=== PATIENT | male | born 1960 | race Hispanic/Latino ===

== ENCOUNTER 2021-03-31 14:41 | Inpatient (IN) ==
--- NOTE | 2021-03-31 16:34 | General Surgery Consult Note ---
HPI Data of Consult Patient: new to practice Consult date: 03/31/21 Consult Narrative Patient Information: Note initiated : 03/31/21 at 4:32 pm Service Date, if different from initiated Date: [] Patient: Gabe Medina 60 y/o M admitted on 03/31/21 for Ruptured diverticulitis. This is a pleasant 60-year-old gentleman who was seen in [facility] earlier this morning, he has been feeling unwell for the past 8 days, developed left-sided abdominal pain over the last several days. Denies any fevers chills nausea or vomiting. Denies any prior history of similar sort of pain. 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 Work-up in [facility] showed a sigmoid diverticulitis with a small area of perforation without free perforation, abscess or other pathology. They had no surgeon therefore the patient was transferred for further medical care.. Chief Complaint: [] Reason for consult: Perforated diverticulitis cc:: CC: Rinku Marie MD Review of Systems Review of systems: All systems are reviewed, negative other than above PFSH PFSH All Active Problems (Updated 03/31/21 @ 16:36 by Willard Rubio MD) Perforation of sigmoid colon due to diverticulitis (Acute) Physical Examination General physical appearance General physical exam: well developed, well nourished and no distress Eyes Eye exam: PERRL and normal ocular movement ENT ENT exam: normal pinna, normal nares, normal mucosa, no hearing loss and no congestion Head Head exam IM: Present atraumatic and normocephalic Neck Neck exam: no masses, no bruits, trachea midline, no lymphadenopathy and no venous distension Cardiovascular Cardiovascular exam IM: Present normal rate and rhythm Respiratory Respiratory exam: normal expansion, normal respiratory effort, clear to percussion and clear to auscultation Abdomen Abdomen: Present soft, tender (LLQ) and bowel sounds; Absent masses, guarding, rigid and rebound Hernia: Present none Genitourinary Genitourinary (Male): Present normal penis with no external lesions Rectum Rectum: Present normal sphincter tone, no hemorrhoids, no tenderness, no masses and no bleeding Integumentary Integumentary: Present no rash, no growths and no abnormal pigmentation Neurologic Neurologic: Present normal coordination and normal sensation Musculoskeletal Musculoskeletal: Present normal gait and normal posture Psychiatric Psychiatric: Present oriented to time, oriented to person, oriented to place, speech is normal and memory intact Results Labs Labs: White blood cell count of 14.[address] scan - pelvis: other (CT scan reviewed by myself and also with our radiologist.) A/P Assessment and plan (1) Perforation of sigmoid colon due to diverticulitis: Status: Acute Narrative A/P Narrative: This is a pleasant 60-year-old gentleman transferred from the [facility] with perforated sigmoid diverticulitis. He has no peritoneal signs, he has no free perforation. He has mild nausea and mild left lower quadrant abdominal pain. Recommendations: Clear liquid diet, continue with IV antibiotics, trend white blood cell count. Thank you very much for this consultation, I will continue to follow with you. Time Spent With Patient Time: Total time spent is greater than 50% in coordination of care (as documented) at patient's floor/unit and/or counseling patient:
[2021-03-31] MEDS ORDERED: HYDROmorphone 0.5 MG/0.5 ML SYRINGE IV PRN (16:58)
[2021-03-31] MEDS ORDERED: ONDANSETRON 4 MG/2 ML VIAL IV PRN (16:58)
[2021-03-31] MEDS ORDERED: DEXTROSE 50% 50 ML VIAL IV PRN (16:58)
[2021-03-31] MEDS ORDERED: DEXTROSE 31 GM ORAL.SUSP PO PRN (16:58)
[2021-03-31] MEDS ORDERED: ACETAMINOPHEN 325 MG TABLET PO PRN (16:58)
[2021-03-31 17:44] LABS: Hematocrit 36.8 % (40.1-51.0); Hemoglobin 11.7 g/dL (13.7-17.5); Mean Cell Volume 87.8 fL (80.0-100.0); Mean Corpuscular HGB Conc 31.8 g/dL (31.0-36.0); Mean Platelet Volume 10.3 fL (7.4-10.4); Platelet Count 354 K/mcL (140-440); RBC 4.19 M/mcL (4.63-6.08); Red Cell Distribution Width 13.9 % (11.5-14.5)
--- NOTE | 2021-03-31 17:51 | Internal Med History&Physical ---
HPI History of Present Illness Patient information: Note initiated : 03/31/21 at 5:43 pm Service Date, if different from initiated Date: [] Patient: Gabe Medina 60 y/o M admitted on 03/31/21 for Ruptured Diverticuli. Chief Complaint: [] History of present illness: Mr. Hermilo Leonardo is a 60 year old male Korean speaker with a history of hypertension, type 2 diabetes mellitus, coronary artery disease presented to [facility] in [place], [place], for abdominal pain that started about a day before presentation and located mostly in the left lower quadrant. Workup included a CT abdomen that showed diverticulitis and gas but no discrete abscess. Due to bed capacity issues the patient was not able to be admitted and transferred to [facility] after the case was reviewed by general surgery Dr. Rubio. 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 Eyes: normal appearance, no scleral icterus. Neck: full ROM Respiratory: no respiratory distress. Cardiovascular: normal rate and rhythm, S1, S2. GI/Abdominal: soft, tenderness in left lower quadrant, rebound tenderness present Extremities: full range of motion, nontender. Neurological: CN II-XII intact, intact motor, intact sensation. Psychiatric: normal mood. Skin: warm, normal color PFSH PFSH All Active Problems (Updated 03/31/21 @ 16:36 by Willard Rubio MD) Perforation of sigmoid colon due to diverticulitis (Acute) MEDS/ALLERGIES Home Medications and Allergies Home Medications Medication Instructions Recorded Confirmed Type Plavix 75 mg PO DAILY 03/31/21 03/31/21 History aspirin 81 mg PO DAILY 03/31/21 03/31/21 History atorvastatin 40 mg PO DAILY 03/31/21 03/31/21 History losartan 50 mg PO DAILY 03/31/21 03/31/21 History metformin 500 mg PO BID 03/31/21 03/31/21 History metoprolol tartrate 25 mg PO DAILY 03/31/21 03/31/21 History Allergies Allergy/AdvReac Type Severity Reaction Status Date / Time No Known Drug Allergies Allergy Unverified 03/31/21 17:19 DATA Data Completed and Pending Labs: Labs from last 24 hours 03/31/21 03/31/21 17:08 17:08 WBC Pending RBC Pending Hgb Pending Hct Pending MCV Pending MCH Pending MCHC Pending RDW Pending Plt Count Pending MPV Pending Platelet Estimate Pending RBC Morphology Pending Sodium Pending Potassium Pending Chloride Pending Carbon Dioxide Pending Anion Gap Pending BUN Pending Creatinine Pending GFR Calculation Pending Glucose Pending Uric Acid Pending Calcium Pending Phosphorus Pending Magnesium Pending Total Bilirubin Pending Direct Bilirubin Pending GGT Pending AST Pending ALT Pending Alkaline Phosphatase Pending Lactate Dehydrogenase Pending Total Protein Pending Albumin Pending Globulin Pending Albumin/Globulin Ratio Pending Triglycerides Pending A/P Narrative A/P Narrative: Assessment: 60 year old male with a history of hypertension, type 2 diabetes mellitus, coronary artery disease transferred from [facility] in [place], [place], for diverticulitis likely complicated by microperforation. The reason for transfer was bed capacity at the sending hospital. #Diverticulitis with microperforation #Hypertension #Type 2 Diabetes Mellitus #Coronary artery disease Plan -Admit to med/surg, admission CBC and inpatient panel -Ciprofloxacin IV and Flagyl IV -Analgesics prn -IV fluid -NPO for now -Serial abdominal exams -Continue home ASA, Plavix, Atorvastatin. -Lantus and SSI, hold Metformin -General surgery consult -DVT ppx: Lovenox -Code status: DNR Time Spent With Patient Time: Total time spent is greater than 50% in coordination of care (as documented) at patient's floor/unit and/or counseling patient: QUALITY VTE Deep Vein Thrombosis/Pulmonary Embolism Present on Admission: No
[2021-03-31 18:01] LABS: ALT/SGPT 16 U/L (<40); AST/SGOT 9 U/L (<40); Alkaline Phosphatase 100 U/L (39-117); Bilirubin,Direct < 0.2 mg/dL (0-0.3); Bilirubin,Total 0.3 mg/dL (0.1-1.0); Blood Urea Nitrogen 13 mg/dL (8-23); Calcium 8.5 mg/dL (8.6-10.4); Carbon Dioxide 24 mmol/L (22-30); Chloride 107 mmol/L (96-108); Globulin 3.1 gm/dL (2.2-3.7); Glomerular Filtration Rate 72; Glucose 100 mg/dL (70-105); Lactate Dehydrogenase 88 U/L (135-225); Phosphorous 2.6 mg/dL (2.5-4.5); Triglycerides 141 mg/dL (<150); Uric Acid 5.5 mg/dL (2.5-8.0)
[2021-03-31 18:52] LABS: Eosinophils % (Manual) 4 % (0-7); Hypochromasia 1+ (None Seen); Lymphocytes % 21 % (15-49); Monocytes % (Manual) 3 % (1-12); Platelet Estimate NORMAL (Normal); RBC Morphology ABNORMAL (Normal); Segmented Neutrophils % 72 % (38-78)
[2021-03-31] MEDS ORDERED: HYDROcodone/APAP 5/325MG TABLET PO ONE (18:57)
[2021-03-31] MEDS: HYDROcodone/APAP 5/325MG TABLET PO PRN (19:00)
[2021-03-31] MEDS: 0.9 % SODIUM CHLORIDE 1,000 ML IV SCH (19:38)
[2021-03-31] MEDS: INSULIN LISPRO 1 UNIT/0.01 ML UNIT SQ SCH ×2 (19:42→20:48)
[2021-03-31] MEDS: metroNIDAZOLE 500 MG/100 ML BAG IV SCH (20:27)
[2021-03-31] MEDS: DOCUSATE SODIUM 100 MG CAPSULE PO SCH (20:47)
[2021-03-31] MEDS: 0.9 % SODIUM CHLORIDE 10 ML SYRINGE IV SCH (20:48)
[2021-03-31] MEDS: SENNOSIDES 1 TABLET PO SCH (20:55)
[2021-03-31] MEDS: CIPROFLOXACIN 400 MG/200 ML BAG IV SCH (21:54)
[2021-04-01] MEDS: HYDROcodone/APAP 5/325MG TABLET PO PRN ×3 (02:49→21:14)
[2021-04-01] MEDS: 0.9 % SODIUM CHLORIDE 1,000 ML IV SCH ×3 (03:01→16:46)
[2021-04-01] MEDS: metroNIDAZOLE 500 MG/100 ML BAG IV SCH ×3 (03:59→20:47)
[2021-04-01] MEDS: 0.9 % SODIUM CHLORIDE 10 ML SYRINGE IV SCH ×3 (04:00→20:55)
[2021-04-01 06:37] LABS: Basophils # (Auto) 0.04 K/mcL (0.00-0.30); Basophils % (Auto) 0.6 % (0.0-2.0); Eosinophils # (Auto) 0.33 K/mcL (0.00-0.70); Eosinophils % (Auto) 4.6 % (0.0-7.0); Hematocrit 36.1 % (40.1-51.0); Hemoglobin 11.2 g/dL (13.7-17.5); Lymphocytes # (Auto) 1.81 K/mcL (1.50-4.80); Mean Cell Volume 87.8 fL (80.0-100.0); Mean Platelet Volume 10.6 fL (7.4-10.4); Monocytes # (Auto) 0.39 K/mcL (0.10-0.90); Monocytes % (Auto) 5.4 % (1.0-12.0); Neutrophils % (Auto) 64.4 % (38.0-78.0); Platelet Count 356 K/mcL (140-440); RBC 4.11 M/mcL (4.63-6.08); Red Cell Distribution Width 13.6 % (11.5-14.5); WBC 7.2 K/mcL (4.5-11.0)
[2021-04-01 07:04] LABS: ALT/SGPT 14 U/L (<40); AST/SGOT 12 U/L (<40); Albumin 3.1 gm/dL (3.2-5.2); Alkaline Phosphatase 98 U/L (39-117); Bilirubin,Direct < 0.2 mg/dL (0-0.3); Bilirubin,Total 0.2 mg/dL (0.1-1.0); Blood Urea Nitrogen 12 mg/dL (8-23); Calcium 8.2 mg/dL (8.6-10.4); Carbon Dioxide 27 mmol/L (22-30); Chloride 107 mmol/L (96-108); Globulin 3.1 gm/dL (2.2-3.7); Glomerular Filtration Rate 59; Glucose 118 mg/dL (70-105); Lactate Dehydrogenase 100 U/L (135-225); Phosphorous 2.5 mg/dL (2.5-4.5); Triglycerides 151 mg/dL (<150); Uric Acid 5.5 mg/dL (2.5-8.0)
[2021-04-01] MEDS: INSULIN LISPRO 1 UNIT/0.01 ML UNIT SQ SCH ×4 (07:40→20:54)
[2021-04-01] MEDS ORDERED: 0.9 % SODIUM CHLORIDE 1,000 ML IV ONE (07:42)
--- NOTE | 2021-04-01 07:52 | General Surgery Progress Note ---
SUBJECTIVE Subjective Patient information: Note initiated : 04/01/21 at 7:51 am Service Date, if different from initiated Date: [] Patient: Gabe Medina 60 y/o M admitted on 03/31/21 for Ruptured Diverticuli. Chief Complaint: [] Interval history: Patient feels better this morning, decreased abdominal pain. No nausea no vomiting. Constitutional Vitals: Vital Signs Temp Pulse Resp BP Pulse Ox 98.3 F 71 20 132/82 92 04/01/21 07:21 04/01/21 07:21 04/01/21 07:21 04/01/21 07:21 04/01/21 07:21 Period Temp Pulse Resp BP Sys/Krishnamurthy Pulse Ox Last 24 Hr 97.8 F-98.6 F 71-85 16-20 129-142/78-86 90-92 Intake and Output 03/31/21 04/01/21 04/01/21 21:59 05:59 13:59 Intake Total 1400 Output Total 620 Balance 780 Weight 199 lb 12.8 oz Intake & Output: Intake & Output 03/31/21 04/01/21 04/01/21 21:59 05:59 13:59 Intake Total 1400 Output Total 620 Balance 780 Weight 199 lb 12.8 oz Intake: IV 1400 Sodium Chloride 0.9% 1,000 ml @ 1000 125 mls/hr IV .Q8H [facility] Rx#: [id number] Output: Void Amount 620 Other: Urine Appearance Clear Urine Color Bright Yellow # Voids 1 General appearance: cooperative and no acute distress GI/Abdominal GI/Abdominal exam: Present normal bowel sounds, soft and tenderness (Minimal tender to palpation in the right lower quadrant); Absent rebound and rigid A/P Narrative A/P Narrative: Resolving diverticulitis. Clear to advance to clear liquid diet. Time Spent With Patient Time: Total time spent is greater than 50% in coordination of care (as documented) at patient's floor/unit and/or counseling patient:
[2021-04-01] MEDS: CIPROFLOXACIN 400 MG/200 ML BAG IV SCH ×2 (08:34→21:51)
[2021-04-01] MEDS: ATORVASTATIN 40 MG TABLET PO SCH (08:35)
[2021-04-01] MEDS: METOPROLOL TARTRATE 25 MG TABLET PO SCH (08:35)
[2021-04-01] MEDS: DOCUSATE SODIUM 100 MG CAPSULE PO SCH ×2 (08:35→20:53)
[2021-04-01] MEDS: ASPIRIN 81 MG TAB.CHEW PO SCH (08:35)
[2021-04-01] MEDS: CLOPIDOGREL 75 MG TABLET PO SCH (08:35)
[2021-04-01] MEDS: ENOXAPARIN 40 MG/0.4 ML SYRINGE SQ SCH (08:35)
--- NOTE | 2021-04-01 11:24 | Internal Med Progress Note ---
SUBJECTIVE Subjective Patient information: Note initiated : 04/01/21 at 11:19 am Service Date, if different from initiated Date: [] Patient: Gabe Medina a 60 y/o M admitted on 03/31/21 for Ruptured Diverticuli. Chief Complaint: [] Interval history: History of present illness: Mr. Hermilo Leonardo is a 60 year old male Faroese speaker with a history of hypertension, type 2 diabetes mellitus, coronary artery disease presented to [facility] in [place], [place], for abdominal pain that started about a day before presentation and located mostly in the left lower quadrant. Workup included a CT abdomen that showed diverticulitis and gas but no discrete abscess. Due to bed capacity issues the patient was not able to be admitted and transferred to [facility] after the case was reviewed by general surgery Dr. Rubio. 04/01: Met with patient, daughter, and at bedside. His daughter assisted with translation. The patient says he is feeling much better today, abdomen less tender. Creatinine increased to 1.3, bolus of normal saline ordered. General surgery happy with progress and recommended advancing to clear liquid diet. Review of systems: afebrile, improving abdominal pain, no chest pain Physical Exam Head: Atraumatic, normal inspection. Eyes: normal appearance, no scleral icterus. Neck: full ROM Respiratory: no respiratory distress. Cardiovascular: normal rate and rhythm, S1, S2. GI/Abdominal: soft, improved tenderness in left lower quadrant Extremities: full range of motion, nontender. Neurological: CN II-XII intact, intact motor, intact sensation. Psychiatric: normal mood. Skin: warm, normal color Constitutional Vitals: Vital Signs Temp Pulse Resp BP Pulse Ox 98.3 F 71 20 132/82 92 04/01/21 07:21 04/01/21 07:21 04/01/21 07:21 04/01/21 07:21 04/01/21 07:21 Period Temp Pulse Resp BP Sys/Krishnamurthy Pulse Ox Last 24 Hr 97.8 F-98.6 F 71-85 16-20 129-142/78-86 90-92 Intake and Output 03/31/21 04/01/21 04/01/21 21:59 05:59 13:59 Intake Total 1400 1200 Output Total 620 200 Balance 780 1000 Weight 90.628 kg Intake & Output: Intake & Output 03/31/21 04/01/21 04/01/21 21:59 05:59 13:59 Intake Total 1400 1200 Output Total 620 200 Balance 780 1000 Weight 90.628 kg Intake: IV 1400 1200 Sodium Chloride 0.9% 1,000 ml @ 1000 1000 Wide Open IV BOLUS ONE Rx#: [id number] Output: Void Amount 620 200 Other: Urine Appearance Clear Urine Color Bright Yellow Dark Yellow Urine Odor Normal # Voids 1 OBJ DATA Labs CBC & Chem 7: 04/01/21 05:08 04/01/21 05:08 Labs: Abnormal Lab Results 04/01/21 04/01/21 03/31/21 05:08 05:08 17:08 RBC 4.11 L Hgb 11.2 L Hct 36.1 L MPV 10.6 H RBC Morphology Hypochromasia Anion Gap 7.0 L Creatinine 1.3 H Glucose 118 H Calcium 8.2 L 8.5 L Lactate Dehydrogenase 100 L 88 L Albumin 3.1 L 3.0 L Triglycerides 151 H 03/31/21 17:08 RBC 4.19 L Hgb 11.7 L Hct 36.8 L MPV RBC Morphology Abnormal A Hypochromasia 1+ A Anion Gap Creatinine Glucose Calcium Lactate Dehydrogenase Albumin Triglycerides Meds: Medications Acetaminophen (Acetaminophen 325 Mg Tablet) 650 mg PO Q6HP PRN; Protocol PRN Reason: Per Pain Protocol/Fever > 101 Hydrocodone Bitart/Acetaminophen (Hydrocodone/Apap 5/325mg Tablet) 1 tab PO Q4HP PRN; Protocol PRN Reason: Per Pain Protocol Last Admin: 04/01/21 02:49 Dose: 1 tab Documented by: Aspirin (Aspirin 81 Mg Tab.Chew) 81 mg PO DAILY [facility] Last Admin: 04/01/21 08:35 Dose: 81 mg Documented by: Atorvastatin Calcium (Atorvastatin 40 Mg Tablet) 40 mg PO DAILY [facility] Last Admin: 04/01/21 08:35 Dose: 40 mg Documented by: Clopidogrel Bisulfate (Clopidogrel 75 Mg Tablet) 75 mg PO DAILY [facility] Last Admin: 04/01/21 08:35 Dose: 75 mg Documented by: Dextrose (Dextrose 50% 50 Ml Vial) 0 ml IV UD PRN PRN Reason: Hypoglycemia Diagnostic Test (Pha) (Accu-Chek 1 Each Strip) 1 each FS ACHS [facility] Last Admin: 04/01/21 07:40 Dose: 1 each Documented by: Docusate Sodium (Docusate Sodium 100 Mg Capsule) 100 mg PO BID [facility] Last Admin: 04/01/21 08:35 Dose: 100 mg Documented by: Enoxaparin Sodium (Enoxaparin 40 Mg/0.4 Ml Syringe) 40 mg SQ DAILY [facility] Last Admin: 04/01/21 08:35 Dose: 40 mg Documented by: Glucose (Dextrose 31 Gm Oral.Susp) 15 gm PO PRN PRN PRN Reason: Hypoglycemia Hydromorphone HCl (Hydromorphone 0.5 Mg/0.5 Ml Syringe) 0.5 mg IV Q2HP PRN; Protocol PRN Reason: Per Pain Protocol Sodium Chloride (Sodium Chloride 0.9%) 1,000 mls @ 125 mls/hr IV .Q8H [facility] Last Admin: 04/01/21 07:10 Dose: 125 mls/hr Documented by: Ciprofloxacin (Cipro) 400 mg in 200 mls @ 200 mls/hr IV Q12H [facility]; Protocol Last Infusion: 04/01/21 09:48 Dose: Infused Documented by: Metronidazole (Flagyl) 500 mg in 100 mls @ 100 mls/hr IV Q8H [facility]; Protocol Last Infusion: 04/01/21 05:02 Dose: Infused Documented by: Insulin Human Lispro (Insulin Lispro 1 Unit/0.01 Ml Unit) 0 unit SQ ACHS [facility]; Protocol Last Admin: 04/01/21 07:40 Dose: Not Given Documented by: Metoprolol Tartrate (Metoprolol Tartrate 25 Mg Tablet) 25 mg PO DAILY [facility] Last Admin: 04/01/21 08:35 Dose: 25 mg Documented by: Ondansetron HCl (Ondansetron 4 Mg/2 Ml Vial) 4 mg IV Q6HP PRN PRN Reason: Nausea And Vomiting Senna (Sennosides 1 Tablet) 2 tab PO HS [facility] Last Admin: 03/31/21 20:55 Dose: Not Given Documented by: Sodium Chloride (0.9 % Sodium Chloride 10 Ml Syringe) 10 ml IV Q8 [facility] Last Admin: 04/01/21 04:00 Dose: Not Given Documented by: A/P Narrative A/P Narrative: Assessment: 60 year old male with a history of hypertension, type 2 diabetes mellitus, coronary artery disease transferred from [facility] in [place], [place], for diverticulitis likely complicated by microperforation. The reason for transfer was bed capacity at the sending hospital. #Diverticulitis with microperforation #Elevated creatinine of 1.3 #Hypertension #Type 2 Diabetes Mellitus #Coronary artery disease Plan -Ciprofloxacin IV and Flagyl IV -Analgesics prn -IV fluid -Clear liquid diet -Serial abdominal exams -Follow renal function -Continue home ASA, Plavix, Atorvastatin. -Lantus and SSI, hold Metformin -General surgery following -DVT ppx: Lovenox -Code status: DNR per patient's request -Disposition: home when ok with surgery and able to tolerate diet, will need oral antibiotics at discharge Time Spent With Patient Time: Total time spent is greater than 50% in coordination of care (as documented) at patient's floor/unit and/or counseling patient: QUALITY VTE Deep Vein Thrombosis/Pulmonary Embolism Present on Admission: No
[2021-04-01] MEDS: SENNOSIDES 1 TABLET PO SCH (20:53)
[2021-04-02] MEDS: 0.9 % SODIUM CHLORIDE 1,000 ML IV SCH ×4 (01:25→12:22)
[2021-04-02] MEDS: metroNIDAZOLE 500 MG/100 ML BAG IV SCH (03:00)
[2021-04-02] MEDS: 0.9 % SODIUM CHLORIDE 10 ML SYRINGE IV SCH ×3 (05:43→21:05)
[2021-04-02 06:49] LABS: Basophils # (Auto) 0.04 K/mcL (0.00-0.30); Basophils % (Auto) 0.6 % (0.0-2.0); Eosinophils # (Auto) 0.36 K/mcL (0.00-0.70); Hematocrit 34.7 % (40.1-51.0); Hemoglobin 11.1 g/dL (13.7-17.5); Lymphocytes # (Auto) 1.63 K/mcL (1.50-4.80); Lymphocytes % (Auto) 22.5 % (15.5-49.0); Mean Platelet Volume 10.6 fL (7.4-10.4); Monocytes # (Auto) 0.45 K/mcL (0.10-0.90); Monocytes % (Auto) 6.2 % (1.0-12.0); Neutrophils % (Auto) 65.7 % (38.0-78.0); Platelet Count 351 K/mcL (140-440); RBC 4.08 M/mcL (4.63-6.08); Red Cell Distribution Width 13.2 % (11.5-14.5); WBC 7.2 K/mcL (4.5-11.0)
[2021-04-02] MEDS: INSULIN LISPRO 1 UNIT/0.01 ML UNIT SQ SCH ×4 (06:56→20:29)
[2021-04-02] MEDS: HYDROcodone/APAP 5/325MG TABLET PO PRN ×2 (07:05→20:55)
[2021-04-02 08:29] LABS: ALT/SGPT 13 U/L (<40); AST/SGOT 12 U/L (<40); Albumin 2.9 gm/dL (3.2-5.2); Alkaline Phosphatase 88 U/L (39-117); Bilirubin,Direct < 0.2 mg/dL (0-0.3); Bilirubin,Total 0.2 mg/dL (0.1-1.0); Blood Urea Nitrogen 8 mg/dL (8-23); Calcium 7.9 mg/dL (8.6-10.4); Carbon Dioxide 24 mmol/L (22-30); Chloride 105 mmol/L (96-108); Globulin 2.9 gm/dL (2.2-3.7); Glomerular Filtration Rate 72; Glucose 106 mg/dL (70-105); Lactate Dehydrogenase 98 U/L (135-225); Phosphorous 2.3 mg/dL (2.5-4.5); Triglycerides 107 mg/dL (<150); Uric Acid 5.1 mg/dL (2.5-8.0)
--- NOTE | 2021-04-02 09:38 | General Surgery Progress Note ---
SUBJECTIVE Subjective Patient information: Note initiated : 04/02/21 at 9:37 am Service Date, if different from initiated Date: [] Patient: Gabe Medina 60 y/o M admitted on 03/31/21 for Ruptured Diverticuli. Chief Complaint: [] Interval history: Slight improvement of abdominal pain, more tender with ambulation. Constitutional Vitals: Vital Signs Temp Pulse Resp BP Pulse Ox 97.7 F 74 20 151/93 93 04/02/21 08:00 04/02/21 08:00 04/02/21 08:00 04/02/21 08:00 04/02/21 08:00 Period Temp Pulse Resp BP Sys/Krishnamurthy Pulse Ox Last 24 Hr 97.7 F-98.5 F 67-76 18-20 145-156/87-93 92-94 Intake and Output 04/01/21 04/02/21 04/02/21 21:59 05:59 13:59 Intake Total 1700 2020 Output Total 400 1200 Balance 1300 820 Weight 205 lb 3 oz Intake & Output: Intake & Output 04/01/21 04/02/21 04/02/21 21:59 05:59 13:59 Intake Total 1700 2020 Output Total 400 1200 Balance 1300 820 Weight 205 lb 3 oz Intake: IV 1100 1300 Sodium Chloride 0.9% 1,000 ml @ 1000 1000 125 mls/hr IV .Q8H [facility] Rx#: [id number] Oral 600 720 Output: Void Amount 400 1200 Other: Percent of Meal Consumed 100% Urine Appearance Clear Clear Urine Color Bright Yellow Bright Yellow Urine Odor Normal Normal Stool Size Small Stool Color Brown Stool Consistency Watery General appearance: cooperative and no acute distress GI/Abdominal GI/Abdominal exam: Present soft; Absent distended, rebound, rigid and tenderness A/P Narrative A/P Narrative: Slowly improving diverticulitis. Advance diet to low residual as tolerated, p.o. antibiotics. I will continue to follow. Time Spent With Patient Time: Total time spent is greater than 50% in coordination of care (as documented) at patient's floor/unit and/or counseling patient:
[2021-04-02] MEDS: ENOXAPARIN 40 MG/0.4 ML SYRINGE SQ SCH (09:59)
[2021-04-02] MEDS: METOPROLOL TARTRATE 25 MG TABLET PO SCH (09:59)
[2021-04-02] MEDS: CIPROFLOXACIN 400 MG/200 ML BAG IV SCH (09:59)
[2021-04-02] MEDS: CLOPIDOGREL 75 MG TABLET PO SCH (10:00)
[2021-04-02] MEDS: ASPIRIN 81 MG TAB.CHEW PO SCH (10:00)
[2021-04-02] MEDS: ATORVASTATIN 40 MG TABLET PO SCH (10:00)
[2021-04-02] MEDS: DOCUSATE SODIUM 100 MG CAPSULE PO SCH ×2 (10:00→20:29)
[2021-04-02] MEDS: CIPROFLOXACIN 500 MG TABLET PO SCH ×2 (10:24→20:29)
--- NOTE | 2021-04-02 14:24 | Internal Med Progress Note ---
SUBJECTIVE Subjective Patient information: Note initiated : 04/02/21 at 2:20 pm Service Date, if different from initiated Date: [] Patient: Gabe Medina a 60 y/o M admitted on 03/31/21 for Ruptured Diverticuli. Chief Complaint: [] Interval history: History of present illness: Mr. Hermilo Leonardo is a 60 year old male Mohawk speaker with a history of hypertension, type 2 diabetes mellitus, coronary artery disease presented to [facility] in [place], [place], for abdominal pain that started about a day before presentation and located mostly in the left lower quadrant. Workup included a CT abdomen that showed diverticulitis and gas but no discrete abscess. Due to bed capacity issues the patient was not able to be admitted and transferred to [facility] after the case was reviewed by general surgery Dr. Rubio. 04/01: Met with patient, daughter, and at bedside. His daughter assisted with translation. The patient says he is feeling much better today, abdomen less tender. Creatinine increased to 1.3, bolus of normal saline ordered. General surgery happy with progress and recommended advancing to clear liquid diet. 04/02: Afebrile, abdominal pain improving, renal function normal today, advanced to soft diet, IV fluid discontinued, transitioned to oral ciprofloxacin and flagyl. General surgery ok with discharge if patient can tolerate soft diet and oral antibiotics. Resumed home Losartan. Plan to discharge tomorrow afternoon when daughter can pick the patient up. Review of systems: afebrile, improving abdominal pain, no chest pain Physical Exam Head: Atraumatic, normal inspection. Eyes: normal appearance, no scleral icterus. Neck: full ROM Respiratory: no respiratory distress. Cardiovascular: normal rate and rhythm, S1, S2. GI/Abdominal: soft, improved tenderness in left lower quadrant Extremities: full range of motion, nontender. Neurological: CN II-XII intact, intact motor, intact sensation. Psychiatric: normal mood. Skin: warm, normal color Constitutional Vitals: Vital Signs Temp Pulse Resp BP Pulse Ox 98.1 F 71 20 160/96 94 04/02/21 12:00 04/02/21 12:00 04/02/21 12:00 04/02/21 12:00 04/02/21 12:00 Period Temp Pulse Resp BP Sys/Krishnamurthy Pulse Ox Last 24 Hr 97.7 F-98.4 F 67-76 18-20 145-160/87-96 92-94 Intake and Output 04/02/21 04/02/21 04/02/21 05:59 13:59 21:59 Intake Total 2019 1480 Output Total 1200 Balance 820 1480 Intake & Output: Intake & Output 04/02/21 04/02/21 04/02/21 05:59 13:59 21:59 Intake Total 2019 1480 Output Total 1200 Balance 820 1480 Intake: IV 1300 1000 Sodium Chloride 0.9% 1,000 ml @ 1000 1000 125 mls/hr IV .Q8H [facility] Rx#: [id number] Oral 720 480 Output: Void Amount 1200 Other: Meal Breakfast Percent of Meal Consumed 100% Feeding Ability Independent Urine Appearance Clear Urine Color Bright Yellow Urine Odor Normal OBJ DATA Labs CBC & Chem 7: 04/02/21 05:06 04/02/21 05:05 Labs: Abnormal Lab Results 04/02/21 04/02/21 04/01/21 05:06 05:05 05:08 RBC 4.08 L Hgb 11.1 L Hct 34.7 L MPV 10.6 H RBC Morphology Hypochromasia Potassium 3.0 L Anion Gap 7.0 L Creatinine 1.3 H Glucose 106 H 118 H Calcium 7.9 L 8.2 L Phosphorus 2.3 L Magnesium 1.5 L Lactate Dehydrogenase 98 L 100 L Total Protein 5.8 L Albumin 2.9 L 3.1 L Triglycerides 151 H 04/01/21 03/31/21 03/31/21 05:08 17:08 17:08 RBC 4.11 L 4.19 L Hgb 11.2 L 11.7 L Hct 36.1 L 36.8 L MPV 10.6 H RBC Morphology Abnormal A Hypochromasia 1+ A Potassium Anion Gap Creatinine Glucose Calcium 8.5 L Phosphorus Magnesium Lactate Dehydrogenase 88 L Total Protein Albumin 3.0 L Triglycerides Meds: Medications Acetaminophen (Acetaminophen 325 Mg Tablet) 650 mg PO Q6HP PRN; Protocol PRN Reason: Per Pain Protocol/Fever > 101 Hydrocodone Bitart/Acetaminophen (Hydrocodone/Apap 5/325mg Tablet) 1 tab PO Q4HP PRN; Protocol PRN Reason: Per Pain Protocol Last Admin: 04/02/21 07:05 Dose: 1 tab Documented by: Aspirin (Aspirin 81 Mg Tab.Chew) 81 mg PO DAILY [facility] Last Admin: 04/02/21 10:00 Dose: 81 mg Documented by: Atorvastatin Calcium (Atorvastatin 40 Mg Tablet) 40 mg PO DAILY [facility] Last Admin: 04/02/21 10:00 Dose: 40 mg Documented by: Ciprofloxacin (Ciprofloxacin 500 Mg Tablet) 500 mg PO BID [facility] Last Admin: 04/02/21 10:24 Dose: 500 mg Documented by: Clopidogrel Bisulfate (Clopidogrel 75 Mg Tablet) 75 mg PO DAILY [facility] Last Admin: 04/02/21 10:00 Dose: 75 mg Documented by: Dextrose (Dextrose 50% 50 Ml Vial) 0 ml IV UD PRN PRN Reason: Hypoglycemia Diagnostic Test (Pha) (Accu-Chek 1 Each Strip) 1 each FS [facility] Last Admin: 04/02/21 12:22 Dose: 1 each Documented by: Docusate Sodium (Docusate Sodium 100 Mg Capsule) 100 mg PO BID [facility] Last Admin: 04/02/21 10:00 Dose: 100 mg Documented by: Enoxaparin Sodium (Enoxaparin 40 Mg/0.4 Ml Syringe) 40 mg SQ DAILY [facility] Last Admin: 04/02/21 09:59 Dose: 40 mg Documented by: Glucose (Dextrose 31 Gm Oral.Susp) 15 gm PO PRN PRN PRN Reason: Hypoglycemia Hydromorphone HCl (Hydromorphone 0.5 Mg/0.5 Ml Syringe) 0.5 mg IV Q2HP PRN; Protocol PRN Reason: Per Pain Protocol Sodium Chloride (Sodium Chloride 0.9%) 1,000 mls @ 125 mls/hr IV .Q8H [facility] Last Admin: 04/02/21 12:22 Dose: 125 mls/hr Documented by: Insulin Human Lispro (Insulin Lispro 1 Unit/0.01 Ml Unit) 0 unit SQ [facility]; Protocol Last Admin: 04/02/21 12:23 Dose: Not Given Documented by: Losartan Potassium (Losartan 50 Mg Tablet) 50 mg PO DAILY [facility] Metoprolol Tartrate (Metoprolol Tartrate 25 Mg Tablet) 25 mg PO DAILY [facility] Last Admin: 04/02/21 09:59 Dose: 25 mg Documented by: Metronidazole (Metronidazole 500 Mg Tablet) 500 mg PO Q8 [facility] Ondansetron HCl (Ondansetron 4 Mg/2 Ml Vial) 4 mg IV Q6HP PRN PRN Reason: Nausea And Vomiting Senna (Sennosides 1 Tablet) 2 tab PO HS [facility] Last Admin: 04/01/21 20:53 Dose: 2 tab Documented by: Sodium Chloride (0.9 % Sodium Chloride 10 Ml Syringe) 10 ml IV Q8 [facility] Last Admin: 04/02/21 12:18 Dose: Not Given Documented by: A/P Narrative A/P Narrative: Assessment: 60 year old male with a history of hypertension, type 2 diabetes mellitus, coronary artery disease transferred from [facility] in [place], [place], for diverticulitis likely complicated by micro perforation. The reason for transfer was bed capacity at the sending hospital. #Resolving diverticulitis with microperforation #Hypertension #Type 2 Diabetes Mellitus #Coronary artery disease #Obesity Plan -Ciprofloxacin PO and Flagyl PO -Analgesics prn -Discontinue IV fluid. -GI soft transitional diet. -Serial abdominal exams -Resume home Losartan -Continue home ASA, Plavix, Atorvastatin, Lopressor. -Lantus and SSI, hold Metformin -General surgery following -DVT ppx: Lovenox -Code status: Full -Disposition: probably home tomorrow on oral antibiotics Time Spent With Patient Time: Total time spent is greater than 50% in coordination of care (as documented) at patient's floor/unit and/or counseling patient: QUALITY VTE Deep Vein Thrombosis/Pulmonary Embolism Present on Admission: No
[2021-04-02] MEDS: metroNIDAZOLE 500 MG TABLET PO SCH ×2 (14:44→21:09)
[2021-04-02] MEDS ORDERED: POTASSIUM CHLORIDE 20 MEQ TABLET PO ONE ×2 (19:14→19:34)
[2021-04-02] MEDS: SENNOSIDES 1 TABLET PO SCH (20:29)
[2021-04-03] MEDS: metroNIDAZOLE 500 MG TABLET PO SCH (06:32)
[2021-04-03 07:13] LABS: Basophils # (Auto) 0.03 K/mcL (0.00-0.30); Basophils % (Auto) 0.5 % (0.0-2.0); Eosinophils # (Auto) 0.29 K/mcL (0.00-0.70); Eosinophils % (Auto) 4.5 % (0.0-7.0); Hematocrit 36.4 % (40.1-51.0); Hemoglobin 11.8 g/dL (13.7-17.5); Lymphocytes # (Auto) 1.42 K/mcL (1.50-4.80); Lymphocytes % (Auto) 22.2 % (15.5-49.0); Mean Cell Volume 84.1 fL (80.0-100.0); Mean Corpuscular HGB Conc 32.4 g/dL (31.0-36.0); Mean Platelet Volume 10.9 fL (7.4-10.4); Monocytes # (Auto) 0.39 K/mcL (0.10-0.90); Monocytes % (Auto) 6.1 % (1.0-12.0); Neutrophils % (Auto) 66.7 % (38.0-78.0); Platelet Count 371 K/mcL (140-440); RBC 4.33 M/mcL (4.63-6.08); Red Cell Distribution Width 13.1 % (11.5-14.5); WBC 6.4 K/mcL (4.5-11.0)
[2021-04-03] MEDS: INSULIN LISPRO 1 UNIT/0.01 ML UNIT SQ SCH ×2 (08:11→11:14)
[2021-04-03] MEDS: 0.9 % SODIUM CHLORIDE 10 ML SYRINGE IV SCH ×2 (08:11→12:26)
[2021-04-03] MEDS: CLOPIDOGREL 75 MG TABLET PO SCH (08:18)
[2021-04-03] MEDS: ATORVASTATIN 40 MG TABLET PO SCH (08:18)
[2021-04-03] MEDS: ENOXAPARIN 40 MG/0.4 ML SYRINGE SQ SCH (08:19)
[2021-04-03] MEDS: METOPROLOL TARTRATE 25 MG TABLET PO SCH (08:19)
[2021-04-03] MEDS: CIPROFLOXACIN 500 MG TABLET PO SCH (08:19)
[2021-04-03] MEDS: ASPIRIN 81 MG TAB.CHEW PO SCH (08:19)
[2021-04-03] MEDS: DOCUSATE SODIUM 100 MG CAPSULE PO SCH (08:19)
[2021-04-03] MEDS: HYDROcodone/APAP 5/325MG TABLET PO PRN (08:22)
[2021-04-03 08:23] LABS: ALT/SGPT 14 U/L (<40); AST/SGOT 16 U/L (<40); Alkaline Phosphatase 89 U/L (39-117); Bilirubin,Direct < 0.2 mg/dL (0-0.3); Bilirubin,Total 0.2 mg/dL (0.1-1.0); Blood Urea Nitrogen 10 mg/dL (8-23); Calcium 8.4 mg/dL (8.6-10.4); Carbon Dioxide 22 mmol/L (22-30); Chloride 104 mmol/L (96-108); Glomerular Filtration Rate 81; Glucose 105 mg/dL (70-105); Lactate Dehydrogenase 111 U/L (135-225); Phosphorous 2.2 mg/dL (2.5-4.5); Triglycerides 129 mg/dL (<150); Uric Acid 4.8 mg/dL (2.5-8.0)
[2021-04-03] MEDS ORDERED: LOSARTAN 50 MG TABLET PO SCH (09:00)
[2021-04-03] MEDS ORDERED: NEUTRA PHOS 1 PACKET PO SCH (09:30)
--- NOTE | 2021-04-03 11:32 | Discharge Summary ---
Discharge Provider Provider Patient information: Note initiated : 04/03/21 at 11:30 am Service Date, if different from initiated Date: [] Patient: Gabe Medina 60 y/o M admitted on 03/31/21 for Ruptured Diverticuli. Chief Complaint: [] Date of admission: 03/31/21 16:10 Discharge date: 04/03/21 Consults: 03/31/21 16:58 Consult to Physician [CONS] Routine Comment: Consulting Provider: Willard Rubio Reason For Exam: Physician to Consult Discharge Meds Discharge Medications Home Medications Plavix 75 mg PO DAILY 03/31/21 [History Confirmed 03/31/21 Last Taken Unknown] aspirin 81 mg PO DAILY 03/31/21 [History Confirmed 03/31/21 Last Taken 03/30/21 08:00] atorvastatin 40 mg PO DAILY 03/31/21 [History Confirmed 03/31/21 Last Taken Unknown] losartan 50 mg PO DAILY 03/31/21 [History Confirmed 03/31/21 Last Taken Unknown] metformin 500 mg PO BID 03/31/21 [History Confirmed 03/31/21 Last Taken Unknown] metoprolol tartrate 25 mg PO DAILY 03/31/21 [History Confirmed 03/31/21 Last Taken Unknown] acetaminophen [Tylenol Extra Strength] 500 mg PO Q6H PRN 10 Days #30 tab 04/03/21 [Rx Last Taken Unknown] ciprofloxacin HCl 500 mg PO BID 7 Days #14 tab 04/03/21 [Rx Last Taken Unknown] hydrocodone-acetaminophen 1 tab PO Q6H PRN #10 tab 04/03/21 [Rx Last Taken Unknown] metronidazole 500 mg PO Q8 7 Days #21 tab 04/03/21 [Rx Last Taken Unknown] COURSE Hospital Course Hospital course: Mr. Hermilo Leonardo is a 60 year old male with a history of hypertension, type 2 diabetes mellitus, coronary artery disease presented to [facility] in [place], [place], for abdominal pain that started about a day before presentation and located mostly in the left lower quadrant. Workup included a CT abdomen that showed diverticulitis and gas but no discrete abscess. Due to bed capacity issues the patient was not able to be admitted and transferred to [facility] after the case was reviewed by general surgery Dr. Rubio. 04/01: Met with patient, daughter, and at bedside. His daughter assisted with translation. The patient says he is feeling much better today, abdomen less tender. Creatinine increased to 1.3, bolus of normal saline ordered. General surgery happy with progress and recommended advancing to clear liquid diet. 04/02: Afebrile, abdominal pain improving, renal function normal today, advanced to soft diet, IV fluid discontinued, transitioned to oral ciprofloxacin and flagyl. General surgery ok with discharge if patient can tolerate soft diet and oral antibiotics. Resumed home Losartan. Plan to discharge tomorrow afternoon when daughter can pick the patient up. 04/03: Tolerating diet and oral antibiotics, discharged to home with 7 more days of oral ciprofloxacin and flagyl. Physical Exam Head: Atraumatic, normal inspection. Eyes: normal appearance, no scleral icterus. Neck: full ROM Respiratory: no respiratory distress. Cardiovascular: normal rate and rhythm, S1, S2. GI/Abdominal: soft, improved tenderness in left lower quadrant Extremities: full range of motion, nontender. Neurological: CN II-XII intact, intact motor, intact sensation. Psychiatric: normal mood. Skin: warm, normal color Discharge diagnosis: Acute Sigmoid diverticulitis Secondary discharge diagnosis: #Hypertension #Type 2 Diabetes Mellitus #Coronary artery disease #Obesity Time Spent with Patient Time attestation: Total time spent providing and/or coordinating discharge services: EXAM Constitutional Vitals: Temp Pulse Resp BP Pulse Ox 97.5 F 76 18 144/88 94 04/03/21 04:00 04/03/21 04:00 04/03/21 04:00 04/03/21 04:00 04/03/21 04:00 Discharge Data Data Completed and Pending Labs on day of discharge: Labs from last 24 hours 04/03/21 04/03/21 05:34 05:34 WBC 6.4 RBC 4.33 L Hgb 11.8 L Hct 36.4 L MCV 84.1 MCH 27.3 MCHC 32.4 RDW 13.1 Plt Count 371 MPV 10.9 H Neut % (Auto) 66.7 Lymph % (Auto) 22.2 Mellette % (Auto) 6.1 Eos % (Auto) 4.5 Baso % (Auto) 0.5 Lymph # (Auto) 1.42 L Mellette # (Auto) 0.39 Eos # (Auto) 0.29 Baso # (Auto) 0.03 Absolute Neutrophils 4.27 Sodium 139 Potassium 3.4 Chloride 104 Carbon Dioxide 22 Anion Gap 13.0 BUN 10 Creatinine 1.0 GFR Calculation 81 Glucose 105 Uric Acid 4.8 Calcium 8.4 L Phosphorus 2.2 L Magnesium 1.7 Total Bilirubin 0.2 Direct Bilirubin < 0.2 GGT 27 AST 16 ALT 14 Alkaline Phosphatase 89 Lactate Dehydrogenase 111 L Total Protein 6.0 Albumin 3.0 L Globulin 3.0 Albumin/Globulin Ratio 1.0 Triglycerides 129 Discharge Plan Patient/Caregiver Discharge Instructions Activity: increase activity as tolerated Diet: Consistent Carbohydrate Stand Alone Forms: Work/Release Restrictions Prescriptions: New ciprofloxacin HCl 500 mg Tablet 500 mg PO BID 7 Days Qty: 14 RF: 0 metronidazole 500 mg Tablet 500 mg PO Q8 7 Days Qty: 21 RF: 0 hydrocodone-acetaminophen 5-325 mg tablet 1 tab PO Q6H PRN (Reason: pain) Qty: 10 RF: 0 acetaminophen [Tylenol Extra Strength] 500 mg tablet 500 mg PO Q6H PRN (Reason: pain) 10 Days Qty: 30 RF: 0 Continued aspirin 81 mg tablet,delayed release (DR/EC) 81 mg PO DAILY RF: 0 atorvastatin 40 mg tablet 40 mg PO DAILY RF: 0 metformin 500 mg 500 mg PO BID RF: 0 Plavix 75 mg 75 mg PO DAILY RF: 0 losartan 50 mg 50 mg PO DAILY RF: 0 metoprolol tartrate 25 mg 25 mg PO DAILY RF: 0 Follow Up Plan Patient Disposition: Home, Self-Care Overall status at discharge: patient is progressing back to baseline Discharge Orders: Discharge Order (Routine); Ordered 04/03/21 Ordered By: Rinku LUNA VTE Deep Vein Thrombosis/Pulmonary Embolism Present on Admission: No
== END 2021-04-03 12:46 | disposition home or self-care (01) | DRG 392 ==
LOC: MEDSUR 16:10
PROVIDERS: ADMIT Internal Medicine; ATTEND Internal Medicine